=== PATIENT | female | born 1950 | race Caucasian/White ===

== ENCOUNTER 2022-05-22 07:02 | Day surgery (SDC) | payer MEDICARE ==
[~2022-05-22 07:02] MED LIST: Propofol 200 MG/20 ML SDV ONE; fentaNYL 100 MCG/2 ML SDV ONE
[2022-05-22] MEDS: Lactated Ringers 1,000 ML IV SCH (07:16)
[2022-05-22] MEDS ORDERED: Ondansetron 4 MG/2 ML SDV ONE (08:23)
== END 2022-05-22 09:25 | disposition home or self-care (01) ==
LOC: JP.SDS 07:02
PROVIDERS: ATTEND Family Medicine
DX: Z12.11 Encounter for screening for malignant neoplasm of colon (principal); D12.2 Benign neoplasm of ascending colon; K64.4 Residual hemorrhoidal skin tags; K64.8 Other hemorrhoids; E78.5 Hyperlipidemia, unspecified; K21.9 Gastro-esophageal reflux disease without esophagitis; I10 Essential (primary) hypertension
CPT/HCPCS: 45380; 88305; J2405; J2704; J3010; J7120